=== PATIENT | female | born 1970 | race Asian ===

== ENCOUNTER 2023-06-20 12:10 | Emergency (ER) | payer OTHER ==
[~2023-06-20] VITALS: Ht 152.4 cm; Wt 57.8 kg
[2023-06-20] MEDS ORDERED: ONDANSETRON ODT8 MG PO (14:01)
[2023-06-20 14:15] VITALS: BP 140/79
== END 2023-06-20 14:15 | disposition home or self-care (01) ==
LOC: ED 12:10
DX: S06.0X0A Concussion without loss of consciousness, initial encounter (principal); E03.9 Hypothyroidism, unspecified; W00.0XXA Fall on same level due to ice and snow, initial encounter
CPT/HCPCS: 70450; A9270